=== PATIENT | male | born 1955 | race Caucasian/White ===

== ENCOUNTER 2017-12-27 14:00 | Emergency (ER) | payer OTHER ==
[2017-12-27] MEDS ORDERED: LORAZEPAM 2 MG INJ (14:14)
[2017-12-27] MEDS: LORAZEPAM 2 MG INJ IV (14:24)
[2017-12-27] MEDS: SOD CHLORIDE 0.9% 1,000 ML IV (14:25)
[2017-12-27 14:39] LABS: ADD MAN DIFF? NO
[2017-12-27 14:41] LABS: ABNORMAL IP MESSAGE 1; BASOPHIL # 0.1 10^3/ul (0.0-0.1); EOSINOPHILS # 2.7 10^3/ul (0.0-0.5); EOSINOPHILS % 22.7 % (0.0-7.0); HEMATOCRIT 43.9 % (42.0-52.0); HEMOGLOBIN 15.5 g/dl (14.0-18.0); LYMPHOCYTES # 3.8 10^3/ul (0.8-2.9); LYMPHOCYTES % 31.4 % (15.0-51.0); MEAN CORPUSCULAR HEMOGLOBIN 31.8 pg (29.0-33.0); MEAN CORPUSCULAR HGB CONC 35.3 g/dl (32.0-37.0); MEAN PLATELET VOLUME 9.2 fl (7.4-10.4); MONOCYTE # 0.7 10^3/ul (0.3-0.9); MONOCYTES % 5.6 % (0.0-11.0); NEUTROPHIL # 4.7 10^3/ul (1.6-7.5); PLATELET COUNT 287 10^3/UL (140-415); POSITIVE DIFF @See below; RED BLOOD COUNT 4.88 10^6/ul (4.70-6.10); RED CELL DISTRIBUTION WIDTH 11.8 % (11.5-14.5)
[2017-12-27 14:44] LABS: INR 0.99; PROTIME 13.2 Sec (11.9-14.9)
[2017-12-27 14:45] LABS: PARTIAL THROMBOPLASTIN TIME 23.5 Sec (25.0-35.0)
[2017-12-27 14:47] LABS: ALANINE AMINOTRANSFERASE 34 IU/L (13-69); ALBUMIN 4.4 g/dl (3.3-4.9); ALBUMIN/GLOBULIN RATIO 1.12; ALKALINE PHOSPHATASE 88 IU/L (42-121); ANION GAP 20 (8-16); ASPARTATE AMINO TRANSFERASE 43 IU/L (15-46); BILIRUBIN,INDIRECT 0.4 mg/dl (0-1.1); BILIRUBIN,TOTAL 0.4 mg/dl (0.2-1.3); BLOOD UREA NITROGEN 13 mg/dl (7-20); CALCIUM 8.3 mg/dl (8.4-10.2); CARBON DIOXIDE 18 mmol/L (21-31); CHLORIDE 111 mmol/L (97-110); CREATINE KINASE 197 IU/L (23-200); GLUCOSE 108 mg/dl (70-220); POTASSIUM 4.2 mmol/L (3.5-5.1); SODIUM 145 mmol/L (135-144); TOTAL PROTEIN 8.3 g/dl (6.1-8.1)
[2017-12-27 14:49] LABS: ACETAMINOPHEN < 10.0 ug/ml (10.0-30.0); SALICYLATE < 1.0 mg/dl (5.0-30.0)
[2017-12-27 15:00] LABS: CK INDEX 0.9; TROPONIN-I < 0.010 ng/ml (0.000-0.120)
[2017-12-27 15:03] LABS: CK-MB 1.77 ng/ml (0.0-2.4)
[2017-12-27 15:51] LABS: ADD UMIC NO; UR ASCORBIC ACID NEGATIVE (NEGATIVE); UR BILIRUBIN (Dip) NEGATIVE (NEGATIVE); UR BLOOD (Dip) NEGATIVE (NEGATIVE); UR CLARITY CLEAR (CLEAR); UR COLOR STRAW (YELLOW); UR GLUCOSE (Dip) NEGATIVE (NEGATIVE); UR KETONES (Dip) NEGATIVE (NEGATIVE); UR LEUKOCYTE ESTERASE (Dip) NEGATIVE Leu/ul (NEGATIVE); UR NITRITE (Dip) NEGATIVE (NEGATIVE); UR SPECIFIC GRAVITY (Dip) 1.006 (1.003-1.030); UR TOTAL PROTEIN (Dip) NEGATIVE (NEGATIVE); UR UROBILINOGEN (Dip) NEGATIVE (NEGATIVE)
[2017-12-27 15:58] LABS: EOSINOPHILS % (M) 26 % (0-7); LYMPHOCYTES #M 3.1 10^3/ul (0.8-2.9); LYMPHOCYTES % (M) 26 % (15-51); MONOCYTE #M 0.8 10^3/ul (0.3-0.9); MONOCYTES % (M) 7 % (0-11); PLATELET ESTIMATE NORMAL; REACTIVE LYMPHOCYTES #M 0.8 10^3/ul (0.0-0.0); REACTIVE LYMPHOCYTES% (M) 7 % (0-0); SEGMENTED NEUTROPHILS (M) % 34 % (39-77); SMUDGE%M 4 % (0-0)
[2017-12-27 16:15] LABS: LACTIC ACID 3.1 mmol/L (0.5-2.0)
[2017-12-27 16:18] LABS: AMPHETAMINE/METHAMPHETAMINE Negative (NEGATIVE); BARBITURATES Negative (NEGATIVE); BENZODIAZEPINES Negative (NEGATIVE); CANNABINOIDS Negative (NEGATIVE); COCAINE Negative (NEGATIVE); OPIATES Negative (NEGATIVE)
[2017-12-27] MEDS: LORAZEPAM 2 MG INJ IM (16:42)
[2017-12-27] MEDS: SODIUM CHLORIDE 0.9% 1L BAG IV* (16:43)
[2017-12-27] MEDS: VANCOMYCIN 1 GM (PMX) 250 ML IVPB (16:45)
[2017-12-27] MEDS: MAGNESIUM SULFATE 2 GM, MULTIVITAMINS 10 ML, THIAMINE 100 MG, FOLIC ACID 1 MG in SOD CH... IV (16:45)
[2017-12-27] MEDS: CEFEPIME 2GM/50 ML (PMX) 50 ML IVPB (16:52)
[2017-12-27 18:25] LABS: LACTIC ACID 1.4 mmol/L (0.5-2.0)
== END 2017-12-27 23:28 | disposition left against medical advice (07) ==
LOC: E/R 23:28
DX: S00.03XA Contusion of scalp, initial encounter (principal); A41.9 Sepsis, unspecified organism; R41.82 Altered mental status, unspecified; F10.231 Alcohol dependence with withdrawal delirium; S00.511A Abrasion of lip, initial encounter; R55 Syncope and collapse; X58.XXXA Exposure to other specified factors, initial encounter; Y92.9 Unspecified place or not applicable
CPT/HCPCS: 36415; 70450; 70486; 71045; 72125; 80053; 80307; 81003; 82550; 82553; 83605; 84484; 85025; 85610; 85730; 87040; 93005; 96372; 96374; 96375; 99291-25